=== PATIENT | female | born 1935 | race Caucasian/White ===

== ENCOUNTER 2018-06-02 01:34 | Inpatient (IN) | payer MEDICARE, OTHER ==
[~2018-06-02] VITALS: Ht 157.5 cm; Wt 54.0 kg
[2018-06-02] MEDS ORDERED: ONDANSETRON 4 MG/2 ML VIAL IV ONE (02:00)
[2018-06-02] MEDS ORDERED: IV NORMAL SALINE 1000 ML BAG IV ONE (02:00)
--- NOTE | 2018-06-02 02:00 | NUR ---
PT HERE FROM HOME BIBA,C/O ABD CRAMPING AND X1 NAUSEA AT HOME, PT TRILA MED FOR LYMPHOMA,PT AAOX4, DENIES CP/SOB/DIZINESS/LIGHTHEADNESS,PT PLACED IN A GURNEY, HOB UP,SR UPX2 FOR SAFETY, IV ESTABLISHED RIGHT AC20G, AWAITING MD ORDERS
[2018-06-02 02:17] LABS: BASOPHILS % (AUTO) 0.3 % (0.0-2.0); EOSINOPHILS % (AUTO) 0.2 % (0.0-7.0); HEMATOCRIT 29.4 % (31.2-41.9); LYMPHOCYTES # (AUTO) 0.9 K/uL (20.0-40.0); LYMPHOCYTES % (AUTO) 11.8 % (20.5-51.5); MEAN CORPUSCULAR HEMOGLOBIN 33.3 uug (24.7-32.8); MEAN CORPUSCULAR HGB CONC 34 g/dL (32.3-35.6); MEAN CORPUSCULAR VOLUME 98.1 fL (75.5-95.3); MONOCYTES # (AUTO) 0.7 K/uL (2.0-10.0); MONOCYTES % (AUTO) 9.1 % (0.0-11.0); NEUTROPHILS % (AUTO) 78.6 % (38.5-71.5); PLATELET COUNT (AUTO) 197 K/uL (179-408); WHITE BLOOD COUNT (AUTO) 7.6 K/uL (3.8-11.8)
[2018-06-02] MEDS ORDERED: ONDANSETRON 4 MG/2 ML VIAL ONE (02:19)
[2018-06-02] MEDS ORDERED: KETOROLAC TROMETHAMINE 15 MG INJ IVP ONE (03:30)
--- NOTE | 2018-06-02 03:30 | NUR ---
PT STILL C/O ABD CRAMPING, WITH NO NAUSEA, MADE AWARE, WITH NEW ORDERS
[2018-06-02] MEDS ORDERED: KETOROLAC TROMETHAMINE 15 MG INJ ONE (03:35)
[2018-06-02 03:46] LABS: CARBON DIOXIDE 20 mmol/L (21-32); CHLORIDE 94 mmol/L (98-107); CREATININE 0.7 mg/dL (0.6-1.3); GLUCOSE 128 mg/dL (74-106); POTASSIUM 3.3 mmol/L (3.5-5.1); UREA NITROGEN, BLOOD 15 mg/dL (7-18)
[2018-06-02 04:02] LABS: ALANINE AMINOTRANSFERASE 25 U/L (14-59); ALKALINE PHOSPHATASE 54 U/L (50-136); ASPARTATE AMINOTRANSFERASE 17 U/L (15-37); BILIRUBIN,TOTAL 0.4 mg/dL (0.2-1.0); LIPASE 182 U/L (73-393); TOTAL PROTEIN, SERUM 7.8 g/dL (6.4-8.2)
[2018-06-02] MEDS ORDERED: LOSARTAN POTASSIUM 50 MG TABS (04:18)
[2018-06-02] MEDS ORDERED: LORA0.5T PO (04:21)
[2018-06-02] MEDS ORDERED: LOSA50TA21 PO (04:21)
[2018-06-02] MEDS ORDERED: METOCLOPRAMIDE HCL 10 MG/2 ML VIAL IV ONE (04:30)
[2018-06-02] MEDS ORDERED: MORPHINE SULFATE 4 MG/1 ML DISP.SYRIN IV ONE (04:30)
--- NOTE | 2018-06-02 04:50 | NUR ---
PT TO CT ABD
[2018-06-02 04:51] LABS: BILIRUBIN,DIRECT 0.1 mg/dL (0.0-0.2)
[2018-06-02] MEDS ORDERED: METOCLOPRAMIDE HCL 10 MG/2 ML VIAL ONE (04:57)
[2018-06-02] MEDS ORDERED: MORPHINE SULFATE 2 MG/1 ML DISP.SYRIN ONE (04:58)
--- NOTE | 2018-06-02 05:08 | NUR ---
PT ECLINED PIAN AND NAUSEA STATES" I DONT TO HAVE SIDE EFFECT" EXPLAINED OF THE IMPORTANCE OF PAIN AND NAUSEA CONTROL, STILL DECLINED
--- NOTE | 2018-06-02 06:55 | NUR ---
REPORT CALLED , SPOKE TO ROMANA MCCORMACK, PT TRANSFERED TO ROOM 220 BY RAÚL MCCORMACK
[2018-06-02] MEDS ORDERED: IV D5 1/2 NS 1000 ML 1,000 ML IV PRN (08:10)
[2018-06-02] MEDS ORDERED: HYDROCODONE/APAP 5-325MG TABLET PO PRN (08:15)
[2018-06-02] MEDS ORDERED: MAGNESIUM HYDROXIDE 30 ML LIQUID UDC PO PRN (08:15)
[2018-06-02] MEDS ORDERED: Z GUARD REMEDY PASTE 57 GM TUBE TOP PRN (08:15)
[2018-06-02] MEDS ORDERED: ACETAMINOPHEN 325 MG TABLET PO PRN (08:15)
[2018-06-02] MEDS ORDERED: ONDANSETRON 4 MG/2 ML VIAL IV PRN (08:15)
[2018-06-02] MEDS ORDERED: LEVOFLOXACIN 500 MG/D5W 500 MG in PREMIXED 1 EACH IV ONE (08:15)
[2018-06-02] MEDS: PANTOPRAZOLE SODIUM 40 MG VIAL IV SCH (09:18)
[2018-06-02] MEDS ORDERED: ACETAMINOPHEN 650 MG SUPP.RECT RC PRN (10:15)
[2018-06-02] MEDS ORDERED: ENALAPRILAT DIHYDRATE INJ 2.5 MG in IV NORMAL SALINE 50 ML IV PRN (10:15)
[2018-06-02] MEDS ORDERED: MORPHINE SULFATE 2 MG/1 ML DISP.SYRIN IV PRN (10:15)
[2018-06-02] MEDS: LORAZEPAM 0.5 MG TABLET PO PRN (11:33)
--- NOTE | 2018-06-02 12:00 | NUR ---
Patient was presented with the ativan that was ordered and family stated that they gave a patient one from home. Family reminded not to give medication from home.
[2018-06-02] MEDS: POTASSIUM CHLORIDE 20 MEQ in IV D5/ 0.9% NACL 1,000 ML IV PRN (12:04)
[2018-06-02 13:13] LABS: *BLOOD, URINE 2+ (NEGATIVE); *CLARITY,URINE TURBID (CLEAR); *COLOR,URINE YELLOW (YELLOW); *KETONES,URINE NEGATIVE (NEGATIVE); *PROTEIN,URINE 2+ (NEGATIVE); LEUKOCYTE ESTERASE ,URINE 3+ (NEGATIVE); NITRITE, URINE NEGATIVE (NEGATIVE); PH,URINE >=9.0 (5.0-8.0); UGLUCOSE NEGATIVE (NEGATIVE)
[2018-06-02 13:15] LABS: *URINE TOTAL PROTEIN RANDOM 120.2 mg/dL (<150/24HR)
[2018-06-02 13:18] LABS: *BILIRUBIN,URIN 1+ (NEGATIVE)
[2018-06-02 13:25] LABS: *CREATININE,URINE < 13.0 mg/dL (30-125)
[2018-06-02 13:37] LABS: BACTERIA,URINE MANY /HPF (NONE SEEN); RBC,URINE 0-3 /HPF (0-3); SQUAMOUS EPITHELIAL CELL,UR FEW /HPF (NONE SEEN); WBC,URINE 0-3 /HPF (0-3)
[2018-06-02 13:49] VITALS: BP 149/95
[2018-06-02] MEDS ORDERED: METRONIDAZOLE 500 MG TABLET PO SCH (14:00)
[2018-06-02] MEDS ORDERED: METRONIDAZOLE 500 MG/NS 100ML 500 MG in PREMIXED 1 EACH IV SCH (14:00)
[2018-06-02] MEDS: PIPERACILLIN/TAZOBACTAM/D5W 3.375 G in PREMIXED 1 EACH IV SCH ×2 (14:50→14:53)
[2018-06-02 16:21] VITALS: BP 124/68
--- NOTE | 2018-06-02 19:14 | NUR ---
patient has been cooperative with care, family and patient were anxious about having immediate orders when they arrived to the floor and want to immediately see a doctor. Patients were reminded that they were seen by a in ER before their transfer up to the med/surg floor, and the has 24 hours to see the patient. After being seen by the patient and family were much more understanding of treatment plan. Currently patient in bed, no distress noted, bed in low position, side rails up x2.
--- NOTE | 2018-06-02 19:30 | NUR ---
Received patient in stable condition with no acute distress noted. Vital signs WNL. Family currently at the bedside. Patient is A/Ox4 & able to make her needs known. Denies Pain & SOB. IV D5 1/2 NS with 20meq KCL currently running at 70cc/hr. No s/s of infiltration or swelling at the IV site. Patient denies N/V. Bed in low position & locked. Call light within reach. Will continue to monitor through shift.
[2018-06-02 20:00] VITALS: BP 119/59
[2018-06-03 00:12] VITALS: BP 120/62
[2018-06-03] MEDS: POTASSIUM CHLORIDE 20 MEQ in IV D5/ 0.9% NACL 1,000 ML IV PRN ×2 (03:47→18:30)
[2018-06-03 04:00] VITALS: BP 133/64
[2018-06-03] MEDS: PIPERACILLIN/TAZOBACTAM/D5W 3.375 G in PREMIXED 1 EACH IV SCH ×3 (05:11→21:48)
--- NOTE | 2018-06-03 06:30 | NUR ---
Patient compliant with care. No acute distress noted during shift. Vital signs within range during shift. Order from MD to collect stool for OB. No stool provided from patient yet. All needs attended to. Medications given per MD order. Safety measures implemented. Call light within reach. Will endorse to oncoming shift.
[2018-06-03 06:46] LABS: BASOPHILS % (AUTO) 0.2 % (0.0-2.0); HEMATOCRIT 30.9 % (31.2-41.9); HEMOGLOBIN 10.5 g/dL (10.9-14.3); LYMPHOCYTES # (AUTO) 0.6 K/uL (20.0-40.0); MEAN CORPUSCULAR HEMOGLOBIN 33.8 uug (24.7-32.8); MEAN CORPUSCULAR HGB CONC 34 g/dL (32.3-35.6); MEAN CORPUSCULAR VOLUME 99.1 fL (75.5-95.3); MONOCYTES # (AUTO) 0.4 K/uL (2.0-10.0); MONOCYTES % (AUTO) 9.7 % (0.0-11.0); NEUTROPHILS % (AUTO) 75.1 % (38.5-71.5); PLATELET COUNT (AUTO) 208 K/uL (179-408); RED BLOOD CELL COUNT(AUTO) 3.11 MIL/uL (3.63-4.92)
[2018-06-03 07:04] LABS: ALANINE AMINOTRANSFERASE 19 U/L (14-59); ALKALINE PHOSPHATASE 42 U/L (50-136); ASPARTATE AMINOTRANSFERASE 18 U/L (15-37); BILIRUBIN,TOTAL 0.3 mg/dL (0.2-1.0); CARBON DIOXIDE 21 mmol/L (21-32); CHLORIDE 110 mmol/L (98-107); CHOLESTEROL 198 mg/dL (<200); CREATININE 0.7 mg/dL (0.6-1.3); GLUCOSE 88 mg/dL (74-106); HDL CHOLESTEROL 56 mg/dL (40-60); MAGNESIUM 2.2 mg/dL (1.8-2.4); PHOSPHOROUS 2.1 mg/dL (2.5-4.9); POTASSIUM 3.8 mmol/L (3.5-5.1); TOTAL PROTEIN, SERUM 6.7 g/dL (6.4-8.2); TRIGLYCERIDES 136 MG/DL (30-150); UREA NITROGEN, BLOOD 3 mg/dL (7-18)
[2018-06-03 07:06] LABS: THYROID STIMULATING HORMONE 1.459 mIU/mL (0.358-3.740)
--- NOTE | 2018-06-03 07:25 | NUR ---
RECEIVED REPORT FROM MANAGER ACUTE NURSE, PATIENT IN BED ASLEEP, NO DISTRESS NOTED AT THIS TIME, BED IN LOW POSITION, SIDE RAILS UPX2, DAUGHTER AT BEDSIDE.
[2018-06-03 07:49] LABS: IRON, SERUM 39 ug/dL (50-175)
[2018-06-03] MEDS ORDERED: LEVOFLOXACIN 250MG /D5W 250 MG in PREMIXED 1 EACH IV SCH (09:00)
[2018-06-03] MEDS: PANTOPRAZOLE SODIUM 40 MG VIAL IV SCH (09:12)
[2018-06-03 09:33] LABS: EOSINOPHILS % (MANUAL) 1 % (0-8); LYMPHOCYTES % (MANUAL) 15 % (20-40); MONOCYTES % (MANUAL) 9 % (2-10); NEUTROPHILS % (MANUAL) 75 % (42-75)
[2018-06-03] MEDS ORDERED: POTASSIUM PHOSPHATE MM 7.5 MMOL in IV DEXTROSE 5% 100 ML IV ONE (10:30)
[2018-06-03 11:45] VITALS: BP 135/67
[2018-06-03 16:13] VITALS: BP 137/53
--- NOTE | 2018-06-03 18:55 | NUR ---
Patient has been cooperative with care, no distress noted throughout the shift. Family is at the bedside. Patient is ambulating to bathroom with standby assist by family. Patient is weak but gaining strength. Currently patient in bed, no distress noted bed in low position, side rails up x2.
[2018-06-03 19:00] VITALS: BP 158/84
[2018-06-03] MEDS: LORAZEPAM 0.5 MG TABLET PO PRN (21:57)
[2018-06-03 22:43] LABS: *OCCULT BLOOD STOOL NEGATIVE (NEGATIVE)
--- NOTE | 2018-06-04 01:18 | NUR ---
Pt was admitted for multiple myeloma qnd abdominal cramping x 3 days , Pt is A & O x 4 , Pt awake and in no distress upon arrival to room , pt has an IV in right AC , no signs of infection , Zosyn given @ 2200 , no report of pain , no shortness of breath , no nausea / no vomiting / no diarrhea , vital signs stable
[2018-06-04 04:00] VITALS: BP 146/69
[2018-06-04] MEDS: PIPERACILLIN/TAZOBACTAM/D5W 3.375 G in PREMIXED 1 EACH IV SCH ×3 (05:23→21:36)
[2018-06-04 06:38] LABS: BASOPHILS % (AUTO) 0.4 % (0.0-2.0); EOSINOPHILS # (AUTO) 0.1 K/uL (0.0-0.7); HEMATOCRIT 29.7 % (31.2-41.9); LYMPHOCYTES # (AUTO) 0.5 K/uL (20.0-40.0); LYMPHOCYTES % (AUTO) 16.6 % (20.5-51.5); MEAN CORPUSCULAR HEMOGLOBIN 33.9 uug (24.7-32.8); MEAN CORPUSCULAR HGB CONC 34 g/dL (32.3-35.6); MEAN CORPUSCULAR VOLUME 100.1 fL (75.5-95.3); MONOCYTES # (AUTO) 0.3 K/uL (2.0-10.0); MONOCYTES % (AUTO) 8.2 % (0.0-11.0); NEUTROPHILS # (AUTO) 2.3 K/uL (1.8-8.9); NEUTROPHILS % (AUTO) 71.8 % (38.5-71.5); PLATELET COUNT (AUTO) 185 K/uL (179-408); RED BLOOD CELL COUNT(AUTO) 2.96 MIL/uL (3.63-4.92); WHITE BLOOD COUNT (AUTO) 3.3 K/uL (3.8-11.8)
--- NOTE | 2018-06-04 06:41 | NUR ---
PT SLEPT THROUGHOUT THE SHIFT. PT SHOWS NO SIGNS OF DISTRESS. IV INTACT AND PATENT. PRESCRIBED MEDICATION GIVEN AND PT TOLERATED IT WELL. NO COMPLAINT OF ABDOMINAL PAIN. SAFETY AND COMFORT PROVIDED. WILL ENDORSE TO DAYSHIFT NURSE.
[2018-06-04 06:54] LABS: CARBON DIOXIDE 24 mmol/L (21-32); CHLORIDE 108 mmol/L (98-107); CREATININE 0.7 mg/dL (0.6-1.3); GLUCOSE 92 mg/dL (74-106); MAGNESIUM 2.1 mg/dL (1.8-2.4); POTASSIUM 3.5 mmol/L (3.5-5.1)
[2018-06-04 07:04] LABS: UREA NITROGEN, BLOOD 3 mg/dL (7-18)
[2018-06-04] MEDS: PANTOPRAZOLE SODIUM 40 MG VIAL IV SCH (08:06)
[2018-06-04] MEDS: POTASSIUM CHLORIDE 20 MEQ in IV D5/ 0.9% NACL 1,000 ML IV PRN (09:49)
[2018-06-04 10:40] LABS: EOSINOPHILS % (MANUAL) 3 % (0-8); LYMPHOCYTES % (MANUAL) 17 % (20-40); MONOCYTES % (MANUAL) 8 % (2-10); NEUTROPHILS % (MANUAL) 72 % (42-75)
[2018-06-04 11:35] VITALS: BP 163/80
[2018-06-04] MEDS ORDERED: LOSARTAN POTASSIUM 50 MG TABLET PO ONE (11:45)
[2018-06-04] MEDS ORDERED: NEUTRA PHOS PACKET PO ONE (12:00)
[2018-06-04] MEDS ORDERED: POTASSIUM CHLORIDE 20 MEQ TAB.PRT.SR PO ONE (12:00)
[2018-06-04] MEDS ORDERED: SUCRALFATE 1 G TABLET PO ONE (13:00)
[2018-06-04] MEDS: POTASSIUM PHOSPHATE MM 5 MMOL in IV DEXTROSE 5% 100 ML IV SCH ×2 (13:08→14:58)
[2018-06-04] MEDS ORDERED: SOD FERRIC GLUC COMPLX/SUCROSE 125 MG in IV NORMAL SALINE 100 ML IV SCH (14:00)
[2018-06-04 16:11] VITALS: BP 127/59
[2018-06-04] MEDS: SUCRALFATE 1 G TABLET PO SCH ×2 (17:08→20:03)
--- NOTE | 2018-06-04 19:20 | NUR ---
RECEIVED PT AWAKE, ALERT, AND ORIENTEDX4. PT SHOWS NO SIGNS OF DISTRESS. PT NO COMPLAIN OF ABDOMINAL PAIN. IV INTACT AND PATENT.CALL LIGHT WITHIN REACH, BED ALARM ON AND IN LOW POSITION, SIDE RAILS UPX2. WILL CONTINUE TO MONITOR.
--- NOTE | 2018-06-04 19:28 | NUR ---
pt resting in bed with daughter at bedside, continue to not tolerate solid foods, no signs of distress, compliant with medication, diet, and care. Given report to [employer] shift lead.
[2018-06-04 20:35] VITALS: BP 142/67
[2018-06-04] MEDS: LORAZEPAM 0.5 MG TABLET PO PRN (21:36)
[2018-06-05 04:41] VITALS: BP 140/70
[2018-06-05] MEDS: POTASSIUM CHLORIDE 20 MEQ in IV D5/ 0.9% NACL 1,000 ML IV PRN (05:54)
[2018-06-05] MEDS: PIPERACILLIN/TAZOBACTAM/D5W 3.375 G in PREMIXED 1 EACH IV SCH ×2 (05:58→13:31)
--- NOTE | 2018-06-05 06:11 | NUR ---
PT SLEPT THROUGHOUT THE SHIFT. PT SHOWS NO SIGNS OF DISTRESS. PRESCRIBED MEDICATION GIVEN AND PT TOLERATED IT WELL. SAFETY AND COMFORT PROVIDED. WILL ENDORSE TO DAYSHIFT NURSE.
[2018-06-05] MEDS: SUCRALFATE 1 G TABLET PO SCH ×2 (06:30→11:30)
--- NOTE | 2018-06-05 06:30 | NUR ---
PT REFUSED TO TAKE THE CARAFATE. PT STABLE. WILL ENDORSE TO DAYSHIFT NURSE.
--- NOTE | 2018-06-05 08:00 | NUR ---
RECEIVED PATIENT AWAKE ALERT AND ORIENTED DENIES PAIN OR DISCOMFORTS AT THIS TIME.REMAIN ON IVF ORDERED AND IV ANTIBIOTICS WITH NO ADVERSE OR ALLERGIC REACTIONS AT THIS TIME.MADE COMFORTABLE WITH D/C PLANNING AT THIS TIME.
[2018-06-05] MEDS: PANTOPRAZOLE SODIUM 40 MG VIAL IV SCH (08:51)
[2018-06-05] MEDS ORDERED: LOSARTAN POTASSIUM 50 MG TABLET PO SCH (09:00)
[2018-06-05 11:45] VITALS: BP 147/71
--- NOTE | 2018-06-05 13:43 | NUR ---
NEW ORDERS NOTED TO DISCHARGE PATIENT HOME TODAY HER DAUGHTER IS AT THE BEDSIDE AND AWARE HER LAST DOSE OF ZOSYN IS IN PROGRESS AT THIS TIME WILL PREPARE THE DISCHARGE INSTRUCTIONS.
--- NOTE | 2018-06-05 14:35 | NUR ---
PATIENT DISCHARGED PICKED UP BY HER DAUGHTER KAR IN SATISFACTORY CONDITION WITH DISCHARGE INSTRUCTIONS AND PRESCRIPTIONS AND PATIENT STATED WILL MAKE OWN APPOINTMENT WITH HER PRIMARY PHYSICIAN DR FLOREZ PATIENT WAS SEEN AND EDUCATED BY THE [facility] PATIENT WHEELED DOWN TO HER DAUGHTERS CAR NOT IN DISTRESS AT THIS TIME.
== END 2018-06-05 14:35 | disposition home or self-care (01) | DRG 371 ==
LOC: ER 01:38 → MED 06:20 → TELE 10:15 → MED 06-03 17:30
PROVIDERS: ADMIT Internal Medicine; ATTEND Internal Medicine
DX: A04.9 Bacterial intestinal infection, unspecified (principal); E43 Unspecified severe protein-calorie malnutrition; R18.8 Other ascites; C90.00 Multiple myeloma not having achieved remission; N39.0 Urinary tract infection, site not specified; Z92.21 Personal history of antineoplastic chemotherapy; Z85.3 Personal history of malignant neoplasm of breast; E86.0 Dehydration; Z68.21 Body mass index [BMI] 21.0-21.9, adult; Z80.0 Family history of malignant neoplasm of digestive organs; Z90.710 Acquired absence of both cervix and uterus; I25.10 Atherosclerotic heart disease of native coronary artery without angina pectoris; Z95.5 Presence of coronary angioplasty implant and graft; N28.1 Cyst of kidney, acquired; E87.6 Hypokalemia; E83.39 Other disorders of phosphorus metabolism; D17.9 Benign lipomatous neoplasm, unspecified; R91.1 Solitary pulmonary nodule; Z88.1 Allergy status to other antibiotic agents; I10 Essential (primary) hypertension; M51.36 Other intervertebral disc degeneration, lumbar region; M48.061 Spinal stenosis, lumbar region without neurogenic claudication; I44.0 Atrioventricular block, first degree; D50.9 Iron deficiency anemia, unspecified
CPT/HCPCS: 36415; 70030-TC; 71045; 83550; 83605; 83690; 83735; 84100; 84156; 84300; 84443; 85025; 85730; 87040; 89055; 93005; A4663; C9113; J1885; J1956; J2270; J2405; J2543; J2765; J2916; J3480; J3490; J7030; J7042; J7060